=== PATIENT | female | born 2000 | race Hispanic/Latino ===

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

== ENCOUNTER 2021-02-26 12:37 | Emergency (ER) | payer OTHER ==
[~2021-02-26] VITALS: Ht 167.6 cm; Wt 80.9 kg
[2021-02-26 15:30] VITALS: BP 132/82
== END 2021-02-26 15:32 | disposition home or self-care (01) | DRG 103 ==
LOC: ED 12:37
DX: R51.9 Headache, unspecified (principal); V49.40XA Driver injured in collision with unspecified motor vehicles in traffic accident, initial encounter

== ENCOUNTER 2022-01-12 20:53 | Emergency (ER) | payer OTHER ==
[~2022-01-12] VITALS: Ht 167.6 cm; Wt 82.7 kg
[2022-01-12 21:23] VITALS: BP 140/89
[2022-01-12] MEDS ORDERED: CEPHALEXIN500 MG PO (22:56)
== END 2022-01-12 23:22 | disposition home or self-care (01) ==
LOC: ED 20:53
DX: J06.9 Acute upper respiratory infection, unspecified (principal); Z20.822 Contact with and (suspected) exposure to COVID-19

== ENCOUNTER 2022-04-07 22:03 | Emergency (ER) | payer OTHER ==
[~2022-04-07] VITALS: Ht 167.6 cm; Wt 91.0 kg
[~2022-04-07 22:03] MED LIST changes: +CEPHALEXIN500 MG PO
[2022-04-07 23:06] LABS: HEMATOCRIT 41.3 % (37.0-47.0); HEMOGLOBIN 13.8 g/dl (12.0-16.0); IMMATURE GRANULOCYTES 0.6 % (0.0-5.0); MEAN CELL VOLUME 88.1 fL CALC (80.0-100.0); MEAN CORPUSCULAR HGB 29.4 pG CALC (26.0-32.0); MEAN CORPUSCULAR HGB CONC 33.4 g/dL CAL (32.0-36.0); NEUT# 3.77 thou/uL (2.00-7.15); RED BLOOD COUNT 4.69 mill/uL (4.20-5.60); RED CELL DISTRI WIDTH 12.3 % (11.5-15.5)
[2022-04-07 23:20] LABS: ALBUMIN 4.4 g/dL (3.2-5.0); ALKALINE PHOSPHATASE 83 u/l (38-126); ANION GAP 13 (6-22 (CALC)); BUN 15 mg/dL (7-17); BUN/CREATININE RATIO 24 (12-20 (CALC)); CARBON DIOXIDE 24 mmol/l (22-30); CHLORIDE 107 mmol/l (95-108); CREATININE 0.6 mg/dL (0.5-1.0); GFR FOR AFR.AMER. > 60 ML/MIN (>=60 (CALC)); GFR OTHER RACES > 60 ML/MIN (>=60 (CALC)); POTASSIUM 3.9 mmol/l (3.5-5.1); SGOT/AST 32 u/l (14-36); SODIUM 139 mmol/l (137-146); TOTAL PROTEIN 7.2 g/dL (6.3-8.2)
[2022-04-07 23:24] LABS: BILIRUBIN, TOTAL 0.2 mg/dL (0.0-1.4)
[2022-04-08] MEDS ORDERED: FIORICET PO (00:14)
[2022-04-08] MEDS ORDERED: TAM75CAP PO (00:14)
[2022-04-08 00:30] VITALS: BP 121/69
== END 2022-04-08 00:39 | disposition home or self-care (01) ==
LOC: ED 22:03
PROVIDERS: Emergency Medicine
DX: J11.1 Influenza due to unidentified influenza virus with other respiratory manifestations (principal); G43.909 Migraine, unspecified, not intractable, without status migrainosus; N91.0 Primary amenorrhea

== ENCOUNTER 2022-04-20 21:31 | Emergency (ER) | payer OTHER ==
[~2022-04-20] VITALS: Ht 167.6 cm; Wt 95.5 kg
[~2022-04-20 21:31] MED LIST changes: +FIORICET PO; +TAM75CAP PO
[2022-04-20 22:00] VITALS: BP 124/75
[2022-04-20 22:32] VITALS: BP 135/94
[2022-04-20 23:49] VITALS: BP 124/81
[2022-04-20] MEDS ORDERED: NAPROXEN500 MG PO (23:55)
[2022-04-21] VITALS: BP 137/87
[2022-04-21 00:22] VITALS: BP 137/87
== END 2022-04-21 00:29 | disposition home or self-care (01) ==
LOC: ED 21:31
DX: S00.83XA Contusion of other part of head, initial encounter (principal); R04.0 Epistaxis; Y04.0XXA Assault by unarmed brawl or fight, initial encounter; Y92.29 Other specified public building as the place of occurrence of the external cause

== ENCOUNTER 2022-09-12 12:29 | Emergency (ER) | payer OTHER ==
[~2022-09-12] VITALS: Ht 167.6 cm; Wt 95.7 kg
[~2022-09-12 12:29] MED LIST changes: +NAPROXEN500 MG PO
[2022-09-12 13:10] VITALS: BP 124/90
[2022-09-12 13:15] VITALS: BP 133/85
[2022-09-12 13:30] VITALS: BP 114/85
[2022-09-12] MEDS ORDERED: ZOFRAN4 MG/TAB PO (13:39)
[2022-09-12] MEDS ORDERED: TAM75CAP PO (13:39)
[2022-09-12 13:45] VITALS: BP 121/90
== END 2022-09-12 13:51 | disposition home or self-care (01) ==
LOC: ED 12:29
DX: J10.1 Influenza due to other identified influenza virus with other respiratory manifestations (principal); Z20.822 Contact with and (suspected) exposure to COVID-19

== ENCOUNTER 2023-02-23 15:08 | Emergency (ER) | payer SELFPAY ==
[~2023-02-23] VITALS: Ht 167.6 cm; Wt 98.8 kg
[~2023-02-23 15:08] MED LIST changes: +ZOFRAN4 MG/TAB PO
[2023-02-23 15:12] VITALS: BP 155/113
[2023-02-23 15:16] VITALS: BP 127/78
[2023-02-23 15:31] VITALS: BP 141/78
[2023-02-23 15:32] VITALS: BP 141/78
== END 2023-02-23 15:39 | disposition home or self-care (01) | DRG 950 ==
LOC: ED 15:08
DX: S01.111D Laceration without foreign body of right eyelid and periocular area, subsequent encounter (principal); X58.XXXD Exposure to other specified factors, subsequent encounter

== ENCOUNTER 2024-04-12 19:48 | Emergency (ER) | payer OTHER ==
[~2024-04-12] VITALS: Ht 170.2 cm; Wt 102.0 kg
[2024-04-12] VITALS (12 sets, daily range): BP systolic 117–172; BP diastolic 56–119
[2024-04-12] MEDS ORDERED: SODIUM CHLORIDE 0.9% 1,000 ML IV ONE ×2 (20:20→21:50)
[2024-04-12] MEDS ORDERED: IBUPROFEN 600 MG/TAB PO ONE (20:20)
[2024-04-12 20:42] LABS: BASO% 0.2 % (0-3); EOS% 0.6 % (0-8); HEMOGLOBIN 14.4 g/dl (12.0-16.0); IMMATURE GRANULOCYTES 0.3 % (0.0-5.0); LYMPH% 17.1 % (15-41); MEAN CELL VOLUME 89.3 fL CALC (80.0-100.0); MEAN CORPUSCULAR HGB 28.6 pG CALC (26.0-32.0); MONO% 8.3 % (2-13); NEUT# 4.68 thou/uL (2.00-7.15); NEUT% 73.5 % (42-76); RED BLOOD COUNT 5.04 mill/uL (4.20-5.60); RED CELL DISTRI WIDTH 12.8 % (11.5-15.5)
[2024-04-12 20:55] LABS: ALBUMIN 4.6 g/dL (3.2-5.0); BILIRUBIN, TOTAL 0.6 mg/dL (0.02-1.3); CREATININE 0.8 mg/dL (0.5-1.0); POTASSIUM 3.7 mmol/l (3.5-5.1); TOTAL PROTEIN 7.7 g/dL (6.3-8.2)
[2024-04-12] MEDS ORDERED: TAM75CAP PO (21:49)
[2024-04-12] MEDS ORDERED: ONDANSETRON HCl 4 MG/2 ML SDV IV ONE (21:50)
[2024-04-12] MEDS ORDERED: KETOROLAC TROMETHAMINE 30 MG/ML SDV IV ONE (21:50)
== END 2024-04-12 23:15 | disposition home or self-care (01) | DRG 195 ==
LOC: ED 19:48
PROVIDERS: Family Medicine
DX: J10.1 Influenza due to other identified influenza virus with other respiratory manifestations (principal); Z20.822 Contact with and (suspected) exposure to COVID-19